=== PATIENT | male | born 2000 | race Caucasian/White ===

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

== ENCOUNTER → 2022-04-18 12:32 | Outpatient (CLI) | payer OTHER, SELFPAY ==
--- NOTE | ~2022-04-18 | XR_ITS ---
XR knee RT 3V DATE: 04/18/2022 12:44 INDICATION: Injury 2 days ago. Anterior knee swelling TECHNIQUE: AP, lateral, sunrise views COMPARISON: None FINDINGS: There may be a small suprapatellar knee joint effusion. No fracture or dislocation, periost eal reaction or bone destruction, radiopaque intra-articular loose body or chondrocalcinosis. Knee jerry int spaces are well preserved. IMPRESSION: Cannot exclude small suprapatellar knee joint effusion; no fracture or dislocation Reviewed, dictated and finalized at location L. [employer]UD[employer]ERVER
== END ==
PROVIDERS: PCP Nurse Practitioner; Visit Provider Nurse Practitioner
DX: M25.561 Pain in right knee (principal)
CPT/HCPCS: 73562